=== PATIENT | female | born 1970 | race Caucasian/White ===

== ENCOUNTER 2019-08-26 13:44 | Emergency (ER) | payer OTHER ==
[~2019-08-26] VITALS: Ht 162.6 cm; Wt 72.6 kg
[2019-08-26] MEDS ORDERED: AZITHROMYCIN 250 MG TABLET PO ONE (14:30)
[2019-08-26] MEDS ORDERED: AZITHROMYCIN 250 MG TABLET ONE (14:31)
--- NOTE | 2019-08-26 14:45 | NUR ---
Patient discharged home accompanied with . Rx given. Patient ambulatory with stable gate, [id number].
== END 2019-08-26 14:56 | disposition home or self-care (01) ==
LOC: ER 13:44
DX: J06.9 Acute upper respiratory infection, unspecified (principal)
CPT/HCPCS: A4663; Q0144